=== PATIENT | female | born 1965 | race African-American/Black ===

== ENCOUNTER 2017-08-09 07:21 | Inpatient (IN) | payer OTHER ==
[2017-08-09] VITALS (16 sets, daily range): BP systolic 95–124; BP diastolic 62–85; Ht 162.6 cm; Wt 67.1 kg
[~2017-08-09] VITALS: Ht 162.6 cm; Wt 67.1 kg
[2017-08-09 08:12] LABS: microscopic required? YES; urine erythrocyte TRACE (NEGATIVE)
[2017-08-09 08:26] LABS: AMPHETAMINE QUAL UR NONE DETECTED (NEG <=1000)
[2017-08-09 08:34] LABS: PLATELET COUNT 380 x10^3mcL (130-400); RED CELL DISTRIBUTION WIDTH 14.4 % (11.5-14.5)
[2017-08-09 08:37] LABS: BASOPHIL % 0 % (0-2)
[2017-08-09 08:48] LABS: ALBUMIN 3.5 g/dL (3.4-5.0); BILIRUBIN TOTAL 0.34 mg/dL (0.20-1.00); CALCIUM 8.4 mg/dL (8.5-10.1); CARBON DIOXIDE 30.8 mmol/L (21-32); CREATININE SERUM 1.2 mg/dL (0.6-1.0); TOTAL PROTEIN, SERUM 7.2 g/dL (6.4-8.2)
[2017-08-09 08:51] LABS: POTASSIUM SERUM 2.3 mmol/L (3.5-5.1)
[2017-08-09 09:41] LABS: CHOLESTEROL/HDL RATIO 2.5; MAGNESIUM 2.6 mg/dL (1.8-2.4); PHOSPHOROUS 4.3 mg/dL (2.5-4.9)
[2017-08-09 09:43] LABS: T3 TOTAL 1.04 ng/mL
[2017-08-09 09:52] LABS: FREE T4 1.08 ng/dL (0.76-1.46); FREE THYROXINE INDEX 2.9 ug/dL (1.4-4.5); T4(THYROXINE) 8.3 ug/dL (4.7-13.3)
[2017-08-09 15:07] LABS: CALCIUM 8.7 mg/dL (8.5-10.1); CARBON DIOXIDE 26.9 mmol/L (21-32); CREATININE SERUM 1.4 mg/dL (0.6-1.0)
[2017-08-09 15:10] LABS: POTASSIUM SERUM 2.8 mmol/L (3.5-5.1)
[2017-08-10 01:50] VITALS: BP 113/68
[2017-08-10 03:00] VITALS: BP 118/66
[2017-08-10 03:45] VITALS: BP 109/69
[2017-08-10 05:32] LABS: CALCIUM 9.2 mg/dL (8.5-10.1); CARBON DIOXIDE 23.2 mmol/L (21-32); CREATININE SERUM 1.3 mg/dL (0.6-1.0); MAGNESIUM 2.2 mg/dL (1.8-2.4); PHOSPHOROUS 1.5 mg/dL (2.5-4.9)
[2017-08-10 05:50] LABS: BASOPHIL % 0 % (0-2); PLATELET COUNT 299 x10^3mcL (130-400); RED CELL DISTRIBUTION WIDTH 14.6 % (11.5-14.5)
[2017-08-10 05:55] VITALS: BP 116/77
[2017-08-10 07:33] VITALS: BP 130/78
== END 2017-08-10 08:06 | disposition short-term general hospital (02) | DRG 133 ==
LOC: ED 07:21 → IC 08:16
PROVIDERS: Emergency Medicine; Family Medicine; Internal Medicine
PROC: 0BH17EZ Insertion of Endotracheal Airway into Trachea, Via Natural or Artificial Opening (ICD-10-PCS; 2017-08-09)
PROC: 0BJ08ZZ Inspection of Tracheobronchial Tree, Via Natural or Artificial Opening Endoscopic (ICD-10-PCS; 2017-08-09)
PROC: 02HV33Z Insertion of Infusion Device into Superior Vena Cava, Percutaneous Approach (ICD-10-PCS; 2017-08-09)
PROC: 5A1935Z Respiratory Ventilation, Less than 24 Consecutive Hours (ICD-10-PCS; principal; 2017-08-09 14:15)
DX: J96.21 Acute and chronic respiratory failure with hypoxia (principal); N17.0 Acute kidney failure with tubular necrosis; G93.41 Metabolic encephalopathy; I42.2 Other hypertrophic cardiomyopathy; I10 Essential (primary) hypertension; D49.1 Neoplasm of unspecified behavior of respiratory system; D72.89 Other specified disorders of white blood cells; J45.901 Unspecified asthma with (acute) exacerbation; E87.6 Hypokalemia; K72.90 Hepatic failure, unspecified without coma; R31.9 Hematuria, unspecified; E78.5 Hyperlipidemia, unspecified; E11.9 Type 2 diabetes mellitus without complications; D25.9 Leiomyoma of uterus, unspecified; Z68.25 Body mass index [BMI] 25.0-25.9, adult; Z83.3 Family history of diabetes mellitus; Z72.89 Other problems related to lifestyle; Z78.1 Physical restraint status
CPT/HCPCS: 31645; 36556; 36600; 76770; 83880; 84439; 87804; A4628; G0480; J0696; J1642; J1956; J2060; J2250; J2270; J2543; J2704; J2930; J3010; J3475; J3480; J3490; J7030; J7613; J7620; J7626; J7644; Q0092; Q9967